=== PATIENT | female | born 1970 | race African-American/Black ===

== ENCOUNTER 2016-12-18 22:38 | Inpatient (IN) | payer BC ==
[2016-12-18] MEDS ORDERED: MAG HYDROX/AL HYDROX/SIMETH 30 ML UDC ONE (23:25)
[2016-12-18] MEDS ORDERED: ONDANSETRON HCL/PF 4 MG/2 ML VIAL ONE (23:26)
[2016-12-18] MEDS ORDERED: oxyCODONE/APAP (5/325 MG) 1 UDTAB TABLET ONE (23:26)
[2016-12-18] MEDS ORDERED: IV NS 0.9% 1,000 ML ONE (23:26)
[2016-12-18] MEDS ORDERED: IV SET PRIMARY 1 EA INFUS.SET MC ONE (23:26)
[2016-12-18] MEDS ORDERED: PANTOPRAZOLE 40 MG VIAL ONE (23:26)
[2016-12-18] MEDS ORDERED: MAG HYDROX/AL HYDROX/SIMETH 30 ML UDC PO ONE (23:30)
[2016-12-18] MEDS ORDERED: PANTOPRAZOLE 40 MG VIAL IV ONE (23:30)
[2016-12-18] MEDS ORDERED: oxyCODONE/APAP (5/325 MG) 1 UDTAB TABLET PO ONE (23:30)
[2016-12-18] MEDS ORDERED: ONDANSETRON HCL/PF - ER 4 MG/2 ML VIAL IV ONE (23:30)
[2016-12-18] MEDS ORDERED: IV NS 0.9% 1,000 ML BAG IV ONE (23:30)
[2016-12-18] MEDS ORDERED: BELLADONNA /PHENOBARB 5 ML UDC 5 ML UDC PO ONE (23:30)
[2016-12-19] MEDS ORDERED: DICYCLOMINE HCL INJ 20 MG/2 ML AMPUL IM ONE
[2016-12-19] MEDS ORDERED: LEVOFLOXACIN 750 MG /D5W 150ML 750 MG in PREMIX 1 EA IV SCH (00:30)
[2016-12-19] MEDS ORDERED: LEVOFLOXACIN 750 MG /D5W 150ML 150 ML IV ONE (00:49)
[2016-12-19] MEDS ORDERED: IV SET PRIMARY PUMP SET 1 EA INFUS.SET MC ONE (00:49)
[2016-12-19] MEDS ORDERED: FUROSEMIDE 20 MG/2 ML VIAL IV ONE (01:30)
[2016-12-19] MEDS ORDERED: FUROSEMIDE 20 MG/2 ML VIAL ONE (01:50)
[2016-12-19] MEDS ORDERED: AMLO2.5T2 PO (03:25)
[2016-12-19] MEDS ORDERED: FURO-145 PO (03:25)
[2016-12-19] MEDS ORDERED: ZOLPIDEM TARTRATE 5 MG TABLET PO PRN (03:30)
[2016-12-19] MEDS ORDERED: MAG HYDROX/AL HYDROX/SIMETH 30 ML UDC PO PRN (03:30)
[2016-12-19] MEDS ORDERED: HYDROCODONE/APAP 5/325MG 1 EACH TABLET PO PRN (03:30)
[2016-12-19] MEDS ORDERED: ENOXAPARIN SODIUM 30 MG/0.3 ML DISP.SYRIN SQ SCH (03:30)
[2016-12-19] MEDS ORDERED: Z GUARD REMEDY 2 OZ OINT TP PRN (03:30)
[2016-12-19] MEDS ORDERED: ONDANSETRON HCL/PF 4 MG/2 ML VIAL IVP PRN (03:30)
[2016-12-19] MEDS ORDERED: IV NS 0.9% 1,000 ML ONE (04:49)
[2016-12-19] MEDS ORDERED: HYDROCODONE/APAP 10/325MG 1 EA TABLET ONE (04:55)
[2016-12-19] MEDS: HYDROCODONE/APAP 10/325MG 1 EA TABLET PO PRN ×2 (04:58→10:11)
[2016-12-19] MEDS: IV NS 0.9% 1,000 ML IV PRN ×2 (04:58→18:17)
[2016-12-19] MEDS: FUROSEMIDE 40 MG/4 ML VIAL IV SCH ×3 (08:48→16:32)
[2016-12-19] MEDS: PANTOPRAZOLE 40 MG TABLET.DR PO SCH (08:48)
[2016-12-19] MEDS: POTASSIUM CHLORIDE 20 MEQ TAB.PRT.SR PO SCH ×3 (08:48→12:09)
[2016-12-19] MEDS: hydrALAZINE HCL 50 MG TABLET PO SCH ×3 (08:49→16:34)
[2016-12-19] MEDS: ISOSORBIDE DINITRATE (20MG) 20 MG TABLET PO SCH ×2 (08:50→16:34)
[2016-12-19] MEDS: MAGNESIUM HYDROXIDE 30 ML UDC PO PRN ×2 (08:51→22:43)
[2016-12-19] MEDS: ACETAMINOPHEN 325 MG TABLET PO PRN ×2 (13:50→22:22)
[2016-12-19] MEDS: ENOXAPARIN SODIUM 40 MG/0.4 ML DISP.SYRIN SQ SCH (22:31)
[2016-12-20] MEDS: ACETAMINOPHEN 325 MG TABLET PO PRN ×3 (06:07→23:39)
[2016-12-20] MEDS ORDERED: FUROSEMIDE 40 MG/4 ML VIAL IV SCH (08:30)
[2016-12-20] MEDS: ASPIRIN 81 MG TAB.CHEW PO SCH (08:41)
[2016-12-20] MEDS: PANTOPRAZOLE 40 MG TABLET.DR PO SCH (08:41)
[2016-12-20] MEDS: hydrALAZINE HCL 50 MG TABLET PO SCH ×3 (08:42→16:44)
[2016-12-20] MEDS: LEVOFLOXACIN 750 MG /D5W 150ML 750 MG in PREMIX 1 EA IV SCH (08:43)
[2016-12-20] MEDS ORDERED: LISINOPRIL (5MG) 5 MG TABLET PO SCH (09:00)
[2016-12-20] MEDS: ISOSORBIDE DINITRATE (20MG) 20 MG TABLET PO SCH ×3 (09:00→17:00)
[2016-12-20] MEDS: METOPROLOL TARTRATE 25 MG TABLET PO SCH ×2 (10:40→23:36)
[2016-12-20] MEDS: DOCUSATE SODIUM 100 MG CAPSULE PO SCH (16:44)
[2016-12-20] MEDS: MAGNESIUM HYDROXIDE 30 ML UDC PO PRN (23:35)
[2016-12-20] MEDS: ENOXAPARIN SODIUM 40 MG/0.4 ML DISP.SYRIN SQ SCH (23:37)
[2016-12-21] MEDS: hydrALAZINE HCL 50 MG TABLET PO SCH ×3 (08:17→16:48)
[2016-12-21] MEDS: DOCUSATE SODIUM 100 MG CAPSULE PO SCH ×2 (08:17→16:49)
[2016-12-21] MEDS: ISOSORBIDE DINITRATE (20MG) 20 MG TABLET PO SCH ×2 (08:18→16:48)
[2016-12-21] MEDS: METOPROLOL TARTRATE 25 MG TABLET PO SCH ×2 (08:18→22:53)
[2016-12-21] MEDS: PANTOPRAZOLE 40 MG TABLET.DR PO SCH (08:18)
[2016-12-21] MEDS: ASPIRIN 81 MG TAB.CHEW PO SCH (08:18)
[2016-12-21] MEDS ORDERED: IV SET PRIMARY PUMP SET 1 EA INFUS.SET MC ONE (09:39)
[2016-12-21] MEDS ORDERED: IV NS 0.9% 250 ML IV ONE (09:40)
[2016-12-21] MEDS: LEVOFLOXACIN 750 MG /D5W 150ML 750 MG in PREMIX 1 EA IV SCH (10:04)
[2016-12-21] MEDS: ACETAMINOPHEN 325 MG TABLET PO PRN (12:34)
[2016-12-21] MEDS: SENNOSIDES 8.6 MG TABLET PO PRN (13:42)
[2016-12-21] MEDS: oxyCODONE/APAP (5/325 MG) 1 UDTAB TABLET PO PRN (19:56)
[2016-12-21] MEDS ORDERED: oxyCODONE/APAP (5/325 MG) 1 UDTAB TABLET PO PRN (20:00)
[2016-12-21] MEDS: ENOXAPARIN SODIUM 40 MG/0.4 ML DISP.SYRIN SQ SCH (22:48)
[2016-12-22] MEDS: DOCUSATE SODIUM 100 MG CAPSULE PO SCH (08:09)
[2016-12-22] MEDS: LEVOFLOXACIN 750 MG /D5W 150ML 750 MG in PREMIX 1 EA IV SCH (08:09)
[2016-12-22] MEDS: ISOSORBIDE DINITRATE (20MG) 20 MG TABLET PO SCH (08:10)
[2016-12-22] MEDS: PANTOPRAZOLE 40 MG TABLET.DR PO SCH (08:10)
[2016-12-22] MEDS: hydrALAZINE HCL 50 MG TABLET PO SCH (08:10)
[2016-12-22] MEDS: METOPROLOL TARTRATE 25 MG TABLET PO SCH (08:11)
[2016-12-22] MEDS: oxyCODONE/APAP (5/325 MG) 1 UDTAB TABLET PO PRN (08:11)
[2016-12-22] MEDS: ASPIRIN 81 MG TAB.CHEW PO SCH (08:11)
[2016-12-22] MEDS: SENNOSIDES 8.6 MG TABLET PO PRN (09:14)
[2016-12-22] MEDS ORDERED: LEVOFLOXACIN (750 MG) 750 MG TABLET PO SCH (09:30)
[2016-12-22] MEDS ORDERED: LEVO750T21 PO (11:35)
== END 2016-12-22 13:00 | disposition home or self-care (01) | DRG 194 ==
DX: I11.0 Hypertensive heart disease with heart failure (principal); I21.4 Non-ST elevation (NSTEMI) myocardial infarction; N17.0 Acute kidney failure with tubular necrosis; I42.9 Cardiomyopathy, unspecified; I50.23 Acute on chronic systolic (congestive) heart failure; I27.2 Other secondary pulmonary hypertension; E78.5 Hyperlipidemia, unspecified; F17.200 Nicotine dependence, unspecified, uncomplicated; Z71.6 Tobacco abuse counseling; K21.9 Gastro-esophageal reflux disease without esophagitis; K59.00 Constipation, unspecified; R91.8 Other nonspecific abnormal finding of lung field; I34.0 Nonrheumatic mitral (valve) insufficiency; R10.9 Unspecified abdominal pain; N26.1 Atrophy of kidney (terminal); R51 Headache